=== PATIENT | female | born 1990 | race Caucasian/White ===

== ENCOUNTER 2018-10-20 19:04 | Emergency (ER) | payer OTHER ==
[~2018-10-20] VITALS: Ht 154.9 cm; Wt 55.1 kg
[2018-10-20 19:24] VITALS: Ht 154.9 cm; Wt 55.1 kg
[2018-10-20 19:48] VITALS: BP 101/60
== END 2018-10-20 19:48 | disposition home or self-care (01) ==
LOC: ED 19:04
DX: B02.9 Zoster without complications (principal); Z88.8 Allergy status to other drugs, medicaments and biological substances